=== PATIENT | male | born 1995 | race Two or more races ===

== ENCOUNTER 2018-05-27 23:38 | Emergency (ER) | payer SELFPAY ==
[~2018-05-27] VITALS: Ht 162.6 cm; Wt 59.0 kg
[2018-05-28 02:17] VITALS: BP 112/72
== END 2018-05-28 02:21 ==
LOC: ER 23:38
DX: S63.502A Unspecified sprain of left wrist, initial encounter (principal); S63.501A Unspecified sprain of right wrist, initial encounter; F10.120 Alcohol abuse with intoxication, uncomplicated; V43.52XA Car driver injured in collision with other type car in traffic accident, initial encounter; Y93.89 Activity, other specified; Y99.8 Other external cause status; Y92.410 Unspecified street and highway as the place of occurrence of the external cause